=== PATIENT | male | born 2000 | race Caucasian/White ===

== ENCOUNTER 2021-10-04 10:07 | Emergency (ER) | payer OTHER ==
[~2021-10-04] VITALS: Ht 190.5 cm; Wt 95.5 kg
[2021-10-04] MEDS ORDERED: DOXY100T (10:27)
[2021-10-04] MEDS ORDERED: AMOX875T2 (10:27)
[2021-10-04] MEDS ORDERED: ONDA4TAB6 (10:27)
[2021-10-04] MEDS ORDERED: NS 1,000 ML IV ONE (11:40)
[2021-10-04] MEDS ORDERED: BENZONATATE 100MG CAPSULE PO ONE (11:45)
[2021-10-04] MEDS ORDERED: cefTRIAXone SOD 1 GM in D5W MINI-BAG PLUS 50 ML IV ONE (11:45)
[2021-10-04 12:21] LABS: BASO # 0.1 10^3/uL (0.0-0.2); BASO % 1.3 % (0.0-1.0); EOS # 0.2 10^3/uL (0.0-0.5); EOS % 3.6 % (0.0-3.0); HEMATOCRIT 48.9 % (42.0-52.0); HEMOGLOBIN 15.9 g/dl (13.5-17.5); LYMPH # 1.9 10^3/uL (1.5-5.0); LYMPH % 33.8 % (24.0-44.0); MEAN CORPUSCULAR HEMOGLOBIN 28.4 pg (27.0-33.0); MEAN CORPUSCULAR HGB CONC 32.5 g/dl (32.0-36.5); MEAN CORPUSCULAR VOLUME 87.5 fl (80.0-96.0); MONO # 0.5 10^3/uL (0.0-0.8); MONO % 9.2 % (2.0-8.0); NEUTROPHILS # 2.8 10^3/uL (1.5-8.5); PLATELET COUNT, AUTOMATED 333 10^3/uL (150-450); RED BLOOD COUNT 5.59 10^6/uL (4.30-6.10); WHITE BLOOD COUNT 5.5 10^3/uL (4.0-10.0)
[2021-10-04 12:40] LABS: ERYTHROCYTE SEDIMENTATION RATE 8 mm/hr (0-15)
[2021-10-04 12:44] LABS: BLOOD UREA NITROGEN 22 MG/DL (7-18); C REACTIVE PROTEIN QUANTITATIV 7.63 MG/DL (0.00-0.30); CALCIUM LEVEL 9.8 MG/DL (8.5-10.1); CARBON DIOXIDE LEVEL 31 MEQ/L (21-32); CHLORIDE LEVEL 105 MEQ/L (98-107); CREATININE FOR GFR 1.05 MG/DL (0.70-1.30); GLUCOSE, FASTING 91 MG/DL (70-100); POTASSIUM SERUM 4.6 MEQ/L (3.5-5.1); SODIUM LEVEL 141 MEQ/L (136-145)
[2021-10-04] MEDS ORDERED: BENZ200C70 PO (14:02)
[2021-10-04 14:12] VITALS: BP 119/62
== END 2021-10-04 14:26 | disposition home or self-care (01) ==
LOC: M ED 10:07
DX: R79.9 Abnormal finding of blood chemistry, unspecified (principal); R05.9 Cough, unspecified; R50.9 Fever, unspecified; Z79.899 Other long term (current) drug therapy
CPT/HCPCS: 71046; 80048; 83605; 85025; 85652; 86140; 87040; 87798; 87880; 96365; 99284; J0696

== ENCOUNTER 2025-07-26 10:37 | Day surgery (SDC) | payer OTHER ==
[~2025-07-26] VITALS: Ht 193 cm; Wt 95.5 kg
[~2025-07-26 10:37] MED LIST: AMOX875T2; BENZ200C70 PO; DOXY100T; ONDA-282
[2025-07-26 10:55] VITALS: BP 135/75; TEMP 98.3; O2SAT 99
[2025-07-26] MEDS ORDERED: LIDOCAINE 2% 100 MG/5 ML SDV (FOR ANES.) As Ordered ONE (11:08)
[2025-07-26] MEDS ORDERED: ONDANSETRON 4MG/2ML VIAL As Ordered ONE (11:08)
[2025-07-26] MEDS ORDERED: dexAMETHasone 4 MG/ML 1 ML VIAL As Ordered ONE (11:08)
[2025-07-26] MEDS ORDERED: ACETAMINOPHEN 1000MG/100ML IV BAG As Ordered ONE (11:08)
[2025-07-26] MEDS ORDERED: MIDAZOLAM INJ 2 MG/2 ML VIAL As Ordered ONE (11:08)
[2025-07-26] MEDS ORDERED: dexmedeTOMIDine (4 MCG/ML) 200 MCG/50 ML BTL As Ordered ONE (11:08)
[2025-07-26] MEDS ORDERED: ASPI81CH33 PO (12:20)
[2025-07-26] MEDS ORDERED: CELE1CAP4 PO (12:20)
[2025-07-26] MEDS ORDERED: ONDA-282 PO (12:20)
[2025-07-26] MEDS ORDERED: COLA100C5 PO (12:20)
[2025-07-26] MEDS ORDERED: OXYC-1 PO (12:20)
[2025-07-26] MEDS ORDERED: ACET-907 PO (12:20)
[2025-07-26] MEDS ORDERED: ROPIvacaine 0.5% 30ML VIAL As Ordered ONE (15:30)
[2025-07-26 15:47] VITALS: BP 124/75; TEMP 98; O2SAT 100
[2025-07-26] MEDS ORDERED: LIDOCAINE 1% SDV 5 ML VIAL As Ordered ONE (15:50)
[2025-07-26] MEDS ORDERED: TRANEXAMIC ACID 100 MG/ML 10ML VIAL As Ordered ONE (15:58)
[2025-07-26] MEDS ORDERED: LACRILUBE (AKWA TEARS) OPHTH OINT 3.5 GM As Ordered ONE (16:18)
[2025-07-26] MEDS ORDERED: VANCOMYCIN 1000MG/20ML VIAL As Ordered ONE (16:20)
[2025-07-26] MEDS ORDERED: KETOROLAC 30 MG/ML 1 ML VIAL As Ordered ONE (16:33)
[2025-07-26] MEDS ORDERED: MORPHINE 2 MG/ML 1 ML VIAL IV PRN (17:40)
[2025-07-26] MEDS ORDERED: ONDANSETRON 4MG/2ML VIAL IV PRN (17:40)
[2025-07-26] MEDS: HYDROMORPHONE HCL 0.5 MG/0.5 ML SYRINGE IV PRN (18:02)
[2025-07-26 18:30] VITALS: BP 131/58; TEMP 98.6; O2SAT 97
== END 2025-07-26 18:59 | disposition home or self-care (01) ==
LOC: M SDC 10:37 → M MS4PR 12:43 → M SDC 18:59
PROVIDERS: ATTEND Orthopaedic Surgery
DX: S76.111A Strain of right quadriceps muscle, fascia and tendon, initial encounter (principal); X50.0XXA Overexertion from strenuous movement or load, initial encounter; Y93.67 Activity, basketball; Y92.9 Unspecified place or not applicable
CPT/HCPCS: 27380; 73560; 76000; C1713; J0131; J0688; J1100; J1171; J1885; J2250; J2405; J2795; J3010; J3373